=== PATIENT | male | born 1945 | race Caucasian/White ===

== ENCOUNTER 2021-11-22 11:50 | Inpatient (IN) | payer OTHER, MEDICARE ==
[~2021-11-22] VITALS: Ht 170.2 cm; Wt 81.8 kg
[~2021-11-22 11:50] MED LIST: ALBU8.5H4 IH; BUDE10.23 IH; CARSR60C PO; CLIN-26 PO; COLC0.6T67 PO; HYT1T PO; INDO-12 PO; INSU100V36 SQ; LANTUS SQ; LOSA1TAB36 PO; RISP0.5T38 PO; ZOLP10TA5 PO
--- NOTE | 2021-11-22 11:53 | NUR ---
PATIENT TO CT VIA [facility]NEY AT THIS TIME.
[2021-11-22] MEDS ORDERED: diltiazem 5mg/ml 5ml inj. IV ONE (11:55)
[2021-11-22] MEDS ORDERED: diltiazem-D5W 125mg/125ml 125 ML IV ONE (11:55)
[2021-11-22] MEDS ORDERED: iohexol 350MG/ML 100ml bottle IV ONE (12:03)
[2021-11-22] MEDS ORDERED: diltiazem-NS 100mg/100ml 125 ML IV ONE (12:03)
[2021-11-22 12:33] LABS: BASOPHILS % (AUTO) 0.2 % (0-1); EOSINOPHILS # (AUTO) 0.3 X10'3 (0-0.9); EOSINOPHILS % (AUTO) 2.4 % (0-6); HEMATOCRIT 38.2 % (42.0-52.0); HEMOGLOBIN 12.9 g/dl (14.0-17.9); LYMPHOCYTES # (AUTO) 1.3 X10'3 (1.1-4.8); LYMPHOCYTES % (AUTO) 10.5 % (21-51); MEAN CORPUSCULAR HEMOGLOBIN 29.3 PG (27.0-31.0); MEAN CORPUSCULAR HGB CONC 33.9 g/dL (33.0-36.5); MEAN CORPUSCULAR VOLUME 86.3 FL (78-98); MEAN PLATELET VOLUME 7.6 FL (7.4-10.4); MONOCYTES % (AUTO) 7.9 % (2-12); NEUTROPHILS # (AUTO) 9.7 X10'3 (1.8-7.7); PLATELET COUNT 293 X10'3 (140-440); RED BLOOD COUNT 4.42 X10'6 (4.70-6.10); RED CELL DISTRIBUTION WIDTH 13.5 % (11.5-14.5); WHITE BLOOD COUNT 12.3 X10'3 (4.5-11.0)
[2021-11-22 12:48] LABS: ALANINE AMINOTRANSFERASE 19 U/L (12-78); ALBUMIN 2.4 G/DL (3.4-5.0); ALBUMIN/GLOBULIN RATIO 0.5 (1.1-1.5); ALKALINE PHOSPHATASE 74 IU/L (46-116); ANION GAP 10 (8-16); ASPARTATE AMINO TRANSFERASE 19 U/L (10-37); BILIRUBIN,TOTAL 0.4 MG/DL (0.1-1.0); BLOOD UREA NITROGEN 26 MG/DL (7-18); BUN/CREATININE RATIO 19.8 (5.4-32.0); CALCIUM 8.8 MG/DL (8.5-10.1); CHLORIDE 102 MMOL/L (99-107); CREATININE 1.31 MG/DL (0.60-1.10); GLUCOSE 186 MG/DL (70-104); POTASSIUM 4.6 MMOL/L (3.5-5.1); SODIUM 134 MMOL/L (135-145); TOTAL CARBON DIOXIDE 22.4 MMOL/L (24-32); TOTAL PROTEIN 7.1 G/DL (6.4-8.2); eGFR 53 ML/MIN
[2021-11-22] MEDS ORDERED: heparin 10,000 units/1 ML INJ IV ONE (13:25)
[2021-11-22] MEDS ORDERED: potassium CL 10mEq/100ml bag 100 ML IV PRN ×2 (13:50→14:05)
[2021-11-22] MEDS ORDERED: magnesium 2GM in 50ml NS 50 ML IV PRN ×2 (13:50→14:05)
[2021-11-22] MEDS ORDERED: magnesium 4gm in 100ml NS 100 ML IV PRN ×2 (13:50→14:05)
[2021-11-22] MEDS ORDERED: POTASSIUM BICARB 20meq eff tab 20 MEQ TABLET.EFF PO PRN ×4 (13:50→14:05)
[2021-11-22] MEDS ORDERED: acetaminophen 325mg tablet PO PRN ×4 (13:50→14:05)
[2021-11-22] MEDS ORDERED: magnesium hydroxide 30ml (MOM) UD suspension PO PRN ×2 (13:50)
[2021-11-22] MEDS ORDERED: mag hydrox/Alum hydrox/simeth 30ml oral suspension PO PRN ×2 (13:50)
[2021-11-22] MEDS ORDERED: ondansetron/PF 4mg/2ml inj IV PRN ×3 (13:50→14:05)
[2021-11-22] MEDS ORDERED: magnesium Cl slow-release 64mg tablet PO PRN ×2 (13:50→14:05)
[2021-11-22] MEDS ORDERED: MESSAGE TO PHARMACY PO ONE (13:55)
[2021-11-22] MEDS ORDERED: glucagon, human recombinant 1mg kit SUBCUT PRN (13:55)
[2021-11-22] MEDS ORDERED: DEXTROSE 15 GM of carb/4 tabs (each vial/BOTTLE has 4 tablets) PO PRN ×2 (13:55)
[2021-11-22] MEDS ORDERED: dextrose 50%-water 50ml dispensing syringe IV PRN ×2 (13:55)
[2021-11-22 13:57] LABS: APTT 28 SECONDS (22-32)
[2021-11-22] MEDS: HEPARIN SOD,PORK IN 0.45% NACL 250 ML IV SCH (14:02)
[2021-11-22] MEDS ORDERED: HYDROcodone/acetaminophen 5mg/325mg tablet PO PRN (14:05)
[2021-11-22] MEDS: normal saline 1000ml 1,000 ML IV SCH (14:05)
[2021-11-22] MEDS ORDERED: morphine 2 MG/ML inj. syringe IV PRN (14:05)
[2021-11-22 14:24] LABS: MAGNESIUM 2.3 MG/DL (1.5-2.4)
[2021-11-22] MEDS ORDERED: INSU100I75 SUBCUT (16:01)
[2021-11-22] MEDS ORDERED: EMPA10TA PO (16:01)
[2021-11-22] MEDS ORDERED: GLIP10TA11 PO (16:01)
[2021-11-22] MEDS ORDERED: ALOG25TA PO (16:01)
[2021-11-22] MEDS ORDERED: ALBUTEROL (16:08)
[2021-11-22] MEDS ORDERED: ADV50500 IH (16:08)
[2021-11-22] MEDS ORDERED: ATOR20TA PO (16:14)
[2021-11-22] MEDS ORDERED: METO100T7 PO (16:14)
[2021-11-22] MEDS ORDERED: LISI40TA13 PO (16:14)
[2021-11-22] MEDS ORDERED: GABA300C PO (16:14)
[2021-11-22] MEDS ORDERED: METF-436 PO (16:15)
[2021-11-22] MEDS ORDERED: CHOL20004 PO (16:38)
[2021-11-22] MEDS ORDERED: IPRA4AER IH (16:38)
[2021-11-22] MEDS ORDERED: FLUT16SP2 BOTHNARES (16:40)
[2021-11-22] MEDS ORDERED: METF-900 PO (16:43)
[2021-11-22] MEDS ORDERED: HYDR25TA5 PO (16:43)
--- NOTE | 2021-11-22 16:48 | NUR ---
technology coach at bedside at this time.
[2021-11-22] MEDS: docusate sod 100mg capsule PO SCH (20:00)
[2021-11-22] MEDS ORDERED: docusate sod 100mg capsule PO SCH (20:00)
[2021-11-22] MEDS: K and/or MAG REPLACEMENT MC SCH (20:00)
[2021-11-22] MEDS ORDERED: K and/or MAG REPLACEMENT MC SCH (20:00)
[2021-11-22] MEDS ORDERED: heparin, porcine 5000 units/ml vial SQ SCH (20:00)
[2021-11-22] MEDS: temazepam 15mg capsule PO PRN (20:13)
[2021-11-22] MEDS: insulin glargine (Lantus) pen - multi-dose SQ SCH (21:00)
[2021-11-23] MEDS: temazepam 15mg capsule PO PRN ×2 (01:03→21:20)
[2021-11-23] MEDS ORDERED: diltiazem-NS 100mg/100ml 100 ML IV SCH (02:25)
[2021-11-23 03:31] LABS: BASOPHILS % (AUTO) 0.3 % (0-1); EOSINOPHILS # (AUTO) 0.5 X10'3 (0-0.9); EOSINOPHILS % (AUTO) 4.8 % (0-6); HEMATOCRIT 36.9 % (42.0-52.0); HEMOGLOBIN 12.6 g/dl (14.0-17.9); LYMPHOCYTES # (AUTO) 1.9 X10'3 (1.1-4.8); LYMPHOCYTES % (AUTO) 19.5 % (21-51); MEAN CORPUSCULAR HEMOGLOBIN 29.3 PG (27.0-31.0); MEAN CORPUSCULAR HGB CONC 34.1 g/dL (33.0-36.5); MEAN CORPUSCULAR VOLUME 85.9 FL (78-98); MONOCYTES # (AUTO) 0.9 X10'3 (0-0.9); NEUTROPHILS # (AUTO) 6.4 X10'3 (1.8-7.7); NEUTROPHILS % (AUTO) 66.4 % (42-75); PLATELET COUNT 293 X10'3 (140-440); RED BLOOD COUNT 4.29 X10'6 (4.70-6.10); RED CELL DISTRIBUTION WIDTH 13.4 % (11.5-14.5); WHITE BLOOD COUNT 9.7 X10'3 (4.5-11.0)
[2021-11-23 03:46] LABS: APTT 31 SECONDS (22-32)
[2021-11-23 03:51] LABS: ALANINE AMINOTRANSFERASE 17 U/L (12-78); ALBUMIN 2.2 G/DL (3.4-5.0); ALBUMIN/GLOBULIN RATIO 0.5 (1.1-1.5); ALKALINE PHOSPHATASE 71 IU/L (46-116); ANION GAP 9 (8-16); ASPARTATE AMINO TRANSFERASE 18 U/L (10-37); BILIRUBIN,TOTAL 0.2 MG/DL (0.1-1.0); BLOOD UREA NITROGEN 29 MG/DL (7-18); BUN/CREATININE RATIO 22.3 (5.4-32.0); CALCIUM 8.9 MG/DL (8.5-10.1); CHLORIDE 103 MMOL/L (99-107); CHOL/HDL RATIO 3.6 (0.00-4.99); CHOLESTEROL 104 MG/DL (0-200); GLUCOSE 205 MG/DL (70-104); HDL CHOLESTEROL 29 MG/DL (35-60); LDL CHOLESTEROL 53 MG/DL (50-100); MAGNESIUM 2.4 MG/DL (1.5-2.4); POTASSIUM 4.7 MMOL/L (3.5-5.1); SODIUM 135 MMOL/L (135-145); TOTAL CARBON DIOXIDE 23.1 MMOL/L (24-32); TOTAL PROTEIN 6.7 G/DL (6.4-8.2); TRIGLYCERIDES 173 MG/DL (20-135); eGFR 54 ML/MIN
[2021-11-23] MEDS: docusate sod 100mg capsule PO SCH ×2 (08:00→20:00)
[2021-11-23] MEDS: K and/or MAG REPLACEMENT MC SCH ×2 (08:00→20:00)
[2021-11-23] MEDS: aspirin 81mg, enteric-coated 1 TAB TABLET.DR PO SCH (08:07)
[2021-11-23] MEDS: normal saline 1000ml 1,000 ML IV SCH ×2 (08:07→18:13)
[2021-11-23] MEDS: ipratropium 0.5 MG/2.5ML nebule NEB SCH ×4 (09:40→20:16)
[2021-11-23 09:47] LABS: APTT 34 SECONDS (22-32)
[2021-11-23] MEDS: HEPARIN SOD,PORK IN 0.45% NACL 250 ML IV SCH (10:39)
[2021-11-23] MEDS: heparin 10,000 units/1 ML INJ IV PRN ×2 (10:40→18:14)
[2021-11-23] MEDS: atorvastatin 20mg tablet PO SCH (10:41)
[2021-11-23] MEDS: metoprolol succinate 25mg (24-HOUR) SR. Tablet PO SCH (10:41)
[2021-11-23] MEDS: lisinopril 20mg tablet PO SCH (10:42)
--- NOTE | 2021-11-23 10:45 | NUR ---
NATALIE VALVERDE AT BEDSIDE TO ASSESS PATIENT AT THIS TIME.
--- NOTE | 2021-11-23 11:23 | NUR ---
PHYSICAL THERAPY AT BEDSIDE TO EVALUATE PATIENT AT THIS TIME, AT BEDSIDE, NO SIGNS OF DISTRESS NOTED.
[2021-11-23] MEDS: insulin Lispro (HumaLOG) vial - multi-dose SQ SCH ×2 (12:56→21:16)
[2021-11-23 17:00] VITALS: BP 133/67
[2021-11-23 18:00] VITALS: BP 106/79
--- NOTE | 2021-11-23 19:13 | NUR ---
Patient in room PCU 3014. I have received report from TINA BEJARANO and had the opportunity to ask questions and assume patient care.
[2021-11-23] MEDS: budesonide 0.5mg/2ml UD nebule IH SCH (20:00)
[2021-11-23] MEDS: fluticasone nasal spray 16GM bottle NS SCH (20:00)
[2021-11-23] MEDS: albuterol 2.5 MG/3 ML nebule NEB SCH (20:00)
[2021-11-23] MEDS: insulin glargine (Lantus) pen - multi-dose SQ SCH (21:20)
[2021-11-23 22:00] VITALS: BP_SYST 105; BP_SYST 140; BP_DIAS 66; BP_DIAS 70
[2021-11-24 00:53] LABS: BASOPHILS # (AUTO) 0.1 X10'3 (0-0.2); BASOPHILS % (AUTO) 0.7 % (0-1); EOSINOPHILS # (AUTO) 0.4 X10'3 (0-0.9); EOSINOPHILS % (AUTO) 4.5 % (0-6); HEMATOCRIT 38.5 % (42.0-52.0); HEMOGLOBIN 13.3 g/dl (14.0-17.9); LYMPHOCYTES # (AUTO) 2.8 X10'3 (1.1-4.8); LYMPHOCYTES % (AUTO) 28.8 % (21-51); MEAN CORPUSCULAR HEMOGLOBIN 29.7 PG (27.0-31.0); MEAN CORPUSCULAR HGB CONC 34.6 g/dL (33.0-36.5); MEAN CORPUSCULAR VOLUME 85.8 FL (78-98); MEAN PLATELET VOLUME 8.1 FL (7.4-10.4); MONOCYTES # (AUTO) 0.7 X10'3 (0-0.9); MONOCYTES % (AUTO) 7.8 % (2-12); NEUTROPHILS # (AUTO) 5.6 X10'3 (1.8-7.7); NEUTROPHILS % (AUTO) 58.2 % (42-75); PLATELET COUNT 302 X10'3 (140-440); RED BLOOD COUNT 4.48 X10'6 (4.70-6.10); RED CELL DISTRIBUTION WIDTH 13.4 % (11.5-14.5); WHITE BLOOD COUNT 9.5 X10'3 (4.5-11.0)
[2021-11-24 01:07] LABS: ALANINE AMINOTRANSFERASE 20 U/L (12-78); ALBUMIN 2.2 G/DL (3.4-5.0); ALBUMIN/GLOBULIN RATIO 0.5 (1.1-1.5); ALKALINE PHOSPHATASE 71 IU/L (46-116); ANION GAP 8 (8-16); ASPARTATE AMINO TRANSFERASE 13 U/L (10-37); BILIRUBIN,TOTAL 0.1 MG/DL (0.1-1.0); BLOOD UREA NITROGEN 36 MG/DL (7-18); BUN/CREATININE RATIO 25.9 (5.4-32.0); CALCIUM 8.9 MG/DL (8.5-10.1); CHLORIDE 106 MMOL/L (99-107); CREATININE 1.39 MG/DL (0.60-1.10); GLUCOSE 189 MG/DL (70-104); MAGNESIUM 2.2 MG/DL (1.5-2.4); POTASSIUM 4.5 MMOL/L (3.5-5.1); SODIUM 139 MMOL/L (135-145); TOTAL PROTEIN 6.7 G/DL (6.4-8.2); eGFR 50 ML/MIN
[2021-11-24] MEDS: heparin 10,000 units/1 ML INJ IV PRN (01:37)
[2021-11-24 02:00] VITALS: BP_SYST 105; BP_SYST 106; BP_DIAS 66; BP_DIAS 79
[2021-11-24] MEDS: albuterol 2.5 MG/3 ML nebule NEB SCH ×2 (02:00→09:36)
[2021-11-24] MEDS ORDERED: HEPARIN SOD,PORK IN 0.45% NACL 250 ML IV SCH (02:38)
[2021-11-24 04:00] VITALS: BP 124/54
--- NOTE | 2021-11-24 06:00 | NUR ---
Patient in room PCU 3014. I have received report from Wes and had the opportunity to ask questions and assume patient care.
--- NOTE | 2021-11-24 06:40 | NUR ---
Problems reprioritized. Patient report given, questions answered & plan of care reviewed with VASU BEJARANO.
[2021-11-24] MEDS: fluticasone nasal spray 16GM bottle NS SCH (08:00)
[2021-11-24] MEDS ORDERED: lisinopril 20mg tablet PO SCH (08:00)
[2021-11-24] MEDS ORDERED: metoprolol succinate 25mg (24-HOUR) SR. Tablet PO SCH (08:00)
[2021-11-24] MEDS ORDERED: clopidogrel 75mg tablet PO SCH (08:00)
[2021-11-24] MEDS ORDERED: atorvastatin 20mg tablet PO SCH (08:00)
[2021-11-24] MEDS: K and/or MAG REPLACEMENT MC SCH (08:00)
[2021-11-24 08:01] VITALS: BP 133/79
[2021-11-24] MEDS: normal saline 1000ml 1,000 ML IV SCH (08:24)
[2021-11-24] MEDS: docusate sod 100mg capsule PO SCH (08:24)
[2021-11-24] MEDS: aspirin 81mg, enteric-coated 1 TAB TABLET.DR PO SCH (08:26)
[2021-11-24] MEDS: metoprolol succinate 25mg (24-HOUR) SR. Tablet PO SCH (08:28)
[2021-11-24] MEDS: atorvastatin 20mg tablet PO SCH (08:29)
[2021-11-24] MEDS: lisinopril 20mg tablet PO SCH (08:29)
[2021-11-24] MEDS: insulin Lispro (HumaLOG) vial - multi-dose SQ SCH (08:48)
[2021-11-24] MEDS: budesonide 0.5mg/2ml UD nebule IH SCH (09:36)
[2021-11-24] MEDS: ipratropium 0.5 MG/2.5ML nebule NEB SCH (09:37)
[2021-11-24] MEDS ORDERED: APIX5TAB3 PO (10:58)
[2021-11-24] MEDS ORDERED: METF-900 PO (10:58)
[2021-11-24 11:00] VITALS: BP 163/80
[2021-11-24] MEDS ORDERED: CLOP75TA34 PO (12:44)
--- NOTE | 2021-11-24 13:59 | NUR ---
Pt. discharged at 1400. IVs out, belongings in possession, [id number] with family member taken via private vehicle.
== END 2021-11-24 13:50 | disposition home or self-care (01) | DRG 64 ==
LOC: ER 11:51 → ED HOLD 13:58 → PCU 3S 11-23 15:27
PROVIDERS: ADMIT Internal Medicine; ATTEND Internal Medicine
PROC: B3251ZZ Computerized Tomography (CT Scan) of Bilateral Common Carotid Arteries using Low Osmolar Contrast (ICD-10-PCS; principal; 2021-11-22)
PROC: B32G1ZZ Computerized Tomography (CT Scan) of Bilateral Vertebral Arteries using Low Osmolar Contrast (ICD-10-PCS; 2021-11-22)
PROC: B32R1ZZ Computerized Tomography (CT Scan) of Intracranial Arteries using Low Osmolar Contrast (ICD-10-PCS; 2021-11-22)
PROC: B3281ZZ Computerized Tomography (CT Scan) of Bilateral Internal Carotid Arteries using Low Osmolar Contrast (ICD-10-PCS; 2021-11-22)
DX: I63.40 Cerebral infarction due to embolism of unspecified cerebral artery (principal); I21.A1 Myocardial infarction type 2; G45.9 Transient cerebral ischemic attack, unspecified; I48.91 Unspecified atrial fibrillation; E11.65 Type 2 diabetes mellitus with hyperglycemia; I12.9 Hypertensive chronic kidney disease with stage 1 through stage 4 chronic kidney disease, or unspecified chronic kidney disease; E11.22 Type 2 diabetes mellitus with diabetic chronic kidney disease; D72.829 Elevated white blood cell count, unspecified; E78.00 Pure hypercholesterolemia, unspecified; F31.9 Bipolar disorder, unspecified; Z20.822 Contact with and (suspected) exposure to COVID-19; F43.10 Post-traumatic stress disorder, unspecified; R29.703 NIHSS score 3; G47.33 Obstructive sleep apnea (adult) (pediatric); G51.0 Bell's palsy; J44.9 Chronic obstructive pulmonary disease, unspecified; M19.90 Unspecified osteoarthritis, unspecified site; N18.30 Chronic kidney disease, stage 3 unspecified; K57.90 Diverticulosis of intestine, part unspecified, without perforation or abscess without bleeding; M10.9 Gout, unspecified; R27.0 Ataxia, unspecified; R47.1 Dysarthria and anarthria; R79.89 Other specified abnormal findings of blood chemistry; Z85.46 Personal history of malignant neoplasm of prostate; Z87.891 Personal history of nicotine dependence; Z79.899 Other long term (current) drug therapy; Z79.4 Long term (current) use of insulin
CPT/HCPCS: 36415; 70450; 70496; 70498; 71045; 73564; 80053; 80061; 82948; 83036; 83735; 83880; 84132; 84484; 85025; 85610; 85730; 86885; 86900; 86901; 87081; 87811; 93306; 94640; 94760; 97116; 97161; 97530; 99291; 99292; A6402; G0378; J1644; J1815; J3490; J7030; Q9967

== ENCOUNTER 2021-11-29 15:04 | Outpatient (CLI) | payer OTHER ==
[~2021-11-29 15:04] MED LIST changes: +ADV50500 IH; -ALBU8.5H4 IH; +ALOG25TA PO; +APIX5TAB3 PO; +ATOR20TA PO; -BUDE10.23 IH; -CARSR60C PO; +CHOL20004 PO; -CLIN-26 PO; +CLOP75TA34 PO; -COLC0.6T67 PO; +EMPA10TA PO; +FLUT16SP2 BOTHNARES; +GLIP10TA11 PO; -HYT1T PO; -INDO-12 PO; +INSU100I75 SUBCUT; -INSU100V36 SQ; +IPRA4AER IH; -LANTUS SQ; +LISI40TA13 PO; -LOSA1TAB36 PO; +METF-900 PO; +METO100T7 PO; -RISP0.5T38 PO
== END 2021-11-29 23:59 | disposition home or self-care (01) ==
LOC: RAD 15:04
PROVIDERS: ATTEND Nurse Practitioner Family
DX: R13.12 Dysphagia, oropharyngeal phase (principal)
CPT/HCPCS: 74230

== ENCOUNTER 2023-07-19 10:53 | Emergency (ER) | payer OTHER, MEDICARE ==
[~2023-07-19] VITALS: Ht 177.8 cm; Wt 84.1 kg
[~2023-07-19 10:53] MED LIST changes: +calcium chloride 100 MG/1 ML inj IV ONE
[2023-07-19 12:25] LABS: ISTAT ANION GAP 6 (8-12); ISTAT BUN 46 mg/dL (7-18); ISTAT CL 106 mmol/L (99-107); ISTAT GLUCOSE > 600 mg/dL (70-104); ISTAT HGB 12.9 g/dl (14.0-17.9); ISTAT Hct 38 %PCV (42-52); ISTAT IONIZED CALCIUM 1.86 mmol/L (1.03-1.32); ISTAT K 3.9 mmol/L (3.5-5.1); ISTAT NA 131 mmol/L (135-145); ISTAT TOTAL CO2 19 mmol/L (24-32); ISTAT eGFR 33 ML/MIN
[2023-07-19 13:52] LABS: ISTAT GLU CONFIRMATION 695 MG/DL
== END 2023-07-19 15:51 ==
LOC: ER 10:54
DX: I46.9 Cardiac arrest, cause unspecified (principal); I48.91 Unspecified atrial fibrillation; E78.00 Pure hypercholesterolemia, unspecified; I10 Essential (primary) hypertension; J44.9 Chronic obstructive pulmonary disease, unspecified; E11.9 Type 2 diabetes mellitus without complications; M19.90 Unspecified osteoarthritis, unspecified site
CPT/HCPCS: 80047; 82948; 94760; 99291; J0171; J3475; J3490